=== PATIENT | female | born 2000 | race Caucasian/White ===

== ENCOUNTER 2018-08-27 09:37 | Day surgery (SDC) | payer BC, OTHER ==
[~2018-08-27] VITALS: Ht 167.6 cm; Wt 62.4 kg
[~2018-08-27 09:37] MED LIST: BUPIVACAINE/EPI 0.5% 1:200K ONE; CEFAZOLIN 1,000 MG ONE; DEXAMETHASONE 4 MG/ML, 1ML ONE; EPINEPHRINE 1 MG/ML, 1ML ONE; FENTANYL PF 100 MCG/2ML ONE; HYDR-3307 PO; LIDOCAINE 1%, 20ML ONE; LIDOCAINE-MPF 2% ,5ML ONE; MIDAZOLAM 1 MG/ML, 2ML ONE; PROM25AM6 PO; PROPOFOL 10 MG/ML, 20ML ONE; ROPIvacaine/PF 0.5%, 30 ML ONE; SUCCINYLCHOLINE 20 MG/ML, 10ML ONE; none per pt
[2018-08-27] MEDS ORDERED: LACTATED RINGERS 1,000 ML IV SCH (10:01)
[2018-08-27] MEDS ORDERED: KURVELO PO (10:11)
[2018-08-27] MEDS ORDERED: [UNRECOGNIZED DRUG - OTHER] (10:11)
[2018-08-27] MEDS ORDERED: MELA5TAB21 PO (10:11)
[2018-08-27] MEDS ORDERED: ASCO500T8 PO (10:11)
[2018-08-27] MEDS ORDERED: vegan iron PO (10:11)
[2018-08-27] MEDS ORDERED: SUMA100T4 PO (10:11)
[2018-08-27] MEDS ORDERED: LORA0.5T PO (10:11)
[2018-08-27] MEDS ORDERED: VALACYCLOVIR PO (10:11)
[2018-08-27] MEDS ORDERED: VALE500C PO (10:11)
[2018-08-27 10:30] VITALS: BP 108/64
[2018-08-27] MEDS ORDERED: LORazepam 2 MG/ML, 1ML IVPush PRN (10:30)
[2018-08-27] MEDS ORDERED: ONDANSETRON 2MG/ML, 2ML IV PRN (10:30)
[2018-08-27] MEDS ORDERED: HYDROmorphone 2 MG/ML, 1ML IVPush PRN (10:30)
[2018-08-27] MEDS ORDERED: ACETAMINOPHEN 500 MG TABLET PO ONE (10:30)
[2018-08-27] MEDS ORDERED: METOCLOPRAMIDE 5 MG/ML, 2ML IV PRN (10:30)
[2018-08-27] MEDS ORDERED: OXYcodone 5 MG/5 ML ORAL.SOL UDC PO PRN (10:30)
[2018-08-27] MEDS ORDERED: MEPERIDINE/PF 25MG/0.5ML IVPush PRN (10:30)
[2018-08-27 10:40] LABS: HCG UR SG 1.025 (1.003-1.030)
[2018-08-27] MEDS ORDERED: MIDAZOLAM 1 MG/ML, 2ML ONE (11:11)
[2018-08-27] MEDS ORDERED: ONDANSETRON 2MG/ML, 2ML ONE ×2 (11:11→11:39)
[2018-08-27] MEDS ORDERED: LIDOCAINE-MPF 2% ,5ML ONE (11:11)
[2018-08-27] MEDS ORDERED: DEXAMETHASONE 4 MG/ML, 1ML ONE ×2 (11:11)
[2018-08-27] MEDS ORDERED: EPINEPHRINE 1 MG/ML, 1ML ONE (11:11)
[2018-08-27] MEDS ORDERED: CEFAZOLIN 1,000 MG ONE ×2 (11:11)
[2018-08-27] MEDS ORDERED: ROPIvacaine/PF 0.5%, 30 ML ONE (11:11)
[2018-08-27] MEDS ORDERED: FENTANYL PF 100 MCG/2ML ONE ×2 (11:11→13:10)
[2018-08-27] MEDS ORDERED: SUCCINYLCHOLINE 20 MG/ML, 10ML ONE (11:11)
[2018-08-27] MEDS ORDERED: PROPOFOL 10 MG/ML, 20ML ONE (11:11)
[2018-08-27] MEDS ORDERED: EPINEPHRINE 1 MG/ML, 1ML INFIL ONE (11:34)
[2018-08-27] MEDS ORDERED: LIDOCAINE 1%, 20ML INFIL ONE (11:34)
[2018-08-27] MEDS ORDERED: BUPIVACAINE/EPI 0.5% 1:200K INFIL ONE (11:34)
[2018-08-27] MEDS ORDERED: MEPERIDINE/PF 25MG/ML,1ML ONE (13:06)
[2018-08-27] MEDS ORDERED: OXYcodone 5 MG/5 ML ORAL.SOL UDC ONE (13:11)
[2018-08-27] MEDS ORDERED: HYDROmorphone 2 MG/ML, 1ML ONE (13:11)
[2018-08-27] MEDS: FENTANYL PF 100 MCG/2ML IV PRN ×2 (13:17→13:31)
== END 2018-08-27 15:05 | disposition home or self-care (01) ==
LOC: OUT 09:37
PROVIDERS: ATTEND Orthopaedic Surgery
DX: S83.512A Sprain of anterior cruciate ligament of left knee, initial encounter (principal); M94.262 Chondromalacia, left knee; M65.862 Other synovitis and tenosynovitis, left lower leg; J45.909 Unspecified asthma, uncomplicated; Z79.891 Long term (current) use of opiate analgesic; Z79.899 Other long term (current) drug therapy; Z72.89 Other problems related to lifestyle; Z82.61 Family history of arthritis; Z82.49 Family history of ischemic heart disease and other diseases of the circulatory system; X58.XXXA Exposure to other specified factors, initial encounter; Y93.66 Activity, soccer; Y92.89 Other specified places as the place of occurrence of the external cause; Y99.8 Other external cause status
CPT/HCPCS: 29888; 64447; 81025; C1713; J0171; J0330; J0690; J1100; J1170; J2175; J2250; J2405; J2704; J2795; J3010; J7120